=== PATIENT | male | born 1985 | race Caucasian/White ===

== ENCOUNTER 2021-06-27 10:01 | Emergency (ER) | payer OTHER ==
[2021-06-27] MEDS ORDERED: Bupivacaine 0.5%/EPINEPHrine 1:200,000 1.8 ML Cartridge INJECT ONE (10:24)
--- NOTE | 2021-06-27 10:30 | EDM.PDOC ---
ED HPI GENERAL MEDICAL PROBLEM - General Chief Complaint: General Stated Complaint: tooth break Time Seen by Provider: 06/27/21 10:20 Source of Information: Reports: Patient, Old Records, RN History Limitations: Reports: No Limitations - History of Present Illness INITIAL COMMENTS - FREE TEXT/NARRATIVE: 36 yo male here with dental pain. Sx's have been ongoing for some time now. Missed his dental appt yesterday and they are not available today. Has not been to see his family doctor. Is taking Dilaudid that he has for a different problem without relief. No fever or facial swelling. 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 (see below) (Dilaudid) - Related Data Allergies Allergy/AdvReac Type Severity Reaction Status Date / Time mushroom Allergy Cannot Verified 06/27/21 10:09 Remember Penicillins Allergy Cannot Verified 06/27/21 10:09 Remember Home Meds: Home Meds Clindamycin HCl 300 mg PO TID #30 capsule 06/27/21 [Rx] HYDROmorphone HCl [Dilaudid] 4 mg PO Q8H 06/27/21 [History] Past Medical History HEENT History: Reports: Hard of Hearing, Impaired Vision Psychiatric History: Reports: Depression Endocrine/Metabolic History: Reports: Obesity/BMI 30+ Oncologic (Cancer) History: Reports: Other (See Below) - Past Surgical History Head Surgeries/Procedures: Reports: None HEENT Surgical History: Reports: None Endocrine Surgical History: Reports: None Oncologic Surgical History: Reports: None Dermatological Surgical History: Reports: None Social & Family History - Tobacco Use Tobacco Use Status *Q: Current Every Day Tobacco User Years of Tobacco use: 20 Packs/Tins Daily: 1 Used Tobacco, but Quit: No Second Hand Smoke Exposure: No - Caffeine Use Caffeine Use: Reports: Tea - Recreational Drug Use Recreational Drug Use: No ED ROS GENERAL - Review of Systems Review Of Systems: See Below Constitutional: Denies: Fever, Chills, Malaise HEENT: Reports: Dental Pain Respiratory: Reports: No Symptoms Cardiovascular: Reports: No Symptoms GI/Abdominal: Reports: No Symptoms Skin: Reports: No Symptoms ED EXAM, GENERAL - Physical Exam Exam: See Below Exam Limited By: No Limitations General Appearance: Alert, WD/WN, No Apparent Distress, Obese Eye Exam: Bilateral Eye: Normal Inspection Ears: Normal External Exam, Normal Canal, Hearing Grossly Normal, Normal TMs Ear Exam: Bilateral Ear: Auricle Normal, Canal Normal, TM normal Nose: Normal Inspection, No Blood Throat/Mouth: Normal Inspection, Normal Lips, Normal Oropharynx, Normal Voice, No Airway Compromise. No: Normal Teeth (has a decayed and tender L mandibular premolar that is his concern today. ) Head: Atraumatic, Normocephalic Neck: Normal Inspection. No: Lymphadenopathy (R), Lymphadenopathy (L) Respiratory/Chest: No Respiratory Distress, Lungs Clear, Normal Breath Sounds, No Accessory Muscle Use Cardiovascular: Regular Rate, Rhythm, No Edema ED GENERAL MEDICAL PROCEDURES - Additional/Other Procedure(s) Other (Free Text) Procedure(s): Attempted a submandibular nerve block, but he was too much of a "gagger" to allow this. I then offered a mental nerve block and patient declined. Course - Vital Signs Last Recorded V/S: Last Vital Signs Temp 36 C L 06/27/21 10:13 Pulse 108 H 06/27/21 10:13 Resp 16 06/27/21 10:13 BP 138/92 H 06/27/21 10:13 Pulse Ox 95 06/27/21 10:13 - Orders/Labs/Meds Meds: Medications Discontinued Medications Generic Name Dose Route Start Last Admin Trade Name Lisa PRN Reason Stop Dose Admin Bupivacaine HCl/Epinephrine Bitart 1.8 ml 06/27/21 10:24 06/27/21 10:33 Bupivacaine 0.5%/Epinephrine 1:200,000 1.8 Ml Cartridge INJECT 06/27/21 10:25 1.8 ml ONETIME ONE Administration Departure - Departure Time of Disposition: 10:44 Disposition: Home, Self-Care 01 Condition: Fair Clinical Impression: Pain, dental - Discharge Information *PRESCRIPTION DRUG MONITORING PROGRAM REVIEWED*: Not Applicable *COPY OF PRESCRIPTION DRUG MONITORING REPORT IN PATIENT ANTWON: Not Applicable Instructions: Dental Pain Referrals: Teri Hyatt MD [Primary Care Provider] - Forms: ED Department Discharge Additional Instructions: Take clindamycin every 8 hrs for any infection that may be present. Continue ibuprofen 800 mg every 8 hrs with food and if needed acetaminophen 1000 mg every 6 hrs and Dilaudid as well. Consider continuing topical agents. Consult your family doctor and dentist for ongoing care. Sepsis Event Note (ED) - Focused Exam Vital Signs: Vital Signs Temp Pulse Resp BP Pulse Ox 06/27/21 10:13 36 C L 108 H 16 138/92 H 95 06/27/21 10:12 36 C L 108 H 16 138/92 H 95
== END 2021-06-27 10:51 | disposition home or self-care (01) ==
LOC: JP.ED 10:01
DX: K08.89 Other specified disorders of teeth and supporting structures (principal); E66.9 Obesity, unspecified; Z68.38 Body mass index [BMI] 38.0-38.9, adult; Z72.0 Tobacco use; Z91.018 Allergy to other foods; Z88.0 Allergy status to penicillin
CPT/HCPCS: 96374; 99282; J3490

== ENCOUNTER 2022-05-07 12:43 | Emergency (ER) | payer MEDICAID, OTHER ==
[2022-05-07 13:07] VITALS: PULSE 106
[2022-05-07 13:21] VITALS: BP 157/106
== END 2022-05-07 14:25 | disposition left against medical advice (07) ==
LOC: JP.ED 12:43
DX: Z53.21 Procedure and treatment not carried out due to patient leaving prior to being seen by health care provider (principal)

== ENCOUNTER 2025-06-22 22:44 | Emergency (ER) | payer MEDICAID, OTHER | END 2025-06-23 01:17 | LOC: JP.ED 22:44 | DX: M79.601 Pain in right arm (principal); E66.9 Obesity, unspecified; Z88.0 Allergy status to penicillin; Z91.018 Allergy to other foods; Z79.84 Long term (current) use of oral hypoglycemic drugs; Z79.899 Other long term (current) drug therapy; Z87.891 Personal history of nicotine dependence; Z68.33 Body mass index [BMI] 33.0-33.9, adult | CPT/HCPCS: 36415; 85379; 99283 ==